=== PATIENT | male | born 1980 | race Caucasian/White ===

== ENCOUNTER 2022-05-09 16:04 | Emergency (ER) | payer MEDICARE, MEDICAID ==
[~2022-05-09] VITALS: Ht 180.3 cm; Wt 131.8 kg
[2022-05-09 16:24] VITALS: BP 149/86
== END 2022-05-09 17:35 | disposition home or self-care (01) ==
LOC: ER 16:06
DX: U07.1 COVID-19 (principal); F17.200 Nicotine dependence, unspecified, uncomplicated
CPT/HCPCS: 99281; 99282

== ENCOUNTER 2022-12-20 08:44 | Emergency (ER) | payer MEDICARE, MEDICAID ==
[~2022-12-20] VITALS: Ht 180.3 cm; Wt 140.0 kg
[2022-12-20 08:47] VITALS: BP 143/91
[2022-12-20] MEDS ORDERED: ketorolac trometh inj. 60 MG/2 ML VIAL IM ONE (09:50)
[2022-12-20] MEDS ORDERED: IBUP-1986 PO (10:10)
== END 2022-12-20 10:20 | disposition home or self-care (01) ==
LOC: ER 08:45
DX: S93.402A Sprain of unspecified ligament of left ankle, initial encounter (principal); X50.0XXA Overexertion from strenuous movement or load, initial encounter; Y93.89 Activity, other specified; Y92.89 Other specified places as the place of occurrence of the external cause; Y99.8 Other external cause status
CPT/HCPCS: 29515; 73610; 96372; 99283; J1885; L1930

== ENCOUNTER 2024-05-22 08:52 | Emergency (ER) | payer MEDICARE, MEDICAID ==
[~2024-05-22] VITALS: Ht 180.3 cm; Wt 133.5 kg
[~2024-05-22 08:52] MED LIST: IBUP-1986 PO
[2024-05-22 08:56] VITALS: BP 138/89; PULSE 77; RESP 16; O2SAT 95
[2024-05-22] MEDS ORDERED: tetanus & diphtheria toxoid (Td) vaccine 0.5ml IMVAC ONE (09:10)
[2024-05-22] MEDS: TETanus/Pertussis (Acell)/Diphther VAC/PF (Tdap-Adult) 0.5ml syringe IMVAC ONE (09:25)
[2024-05-22 09:27] VITALS: TEMP 97.6
== END 2024-05-22 09:29 | disposition home or self-care (01) ==
LOC: ER 08:53
DX: S61.231A Puncture wound without foreign body of left index finger without damage to nail, initial encounter (principal); Z79.1 Long term (current) use of non-steroidal anti-inflammatories (NSAID); X58.XXXA Exposure to other specified factors, initial encounter; Y93.89 Activity, other specified; Y92.89 Other specified places as the place of occurrence of the external cause; Y99.8 Other external cause status
CPT/HCPCS: 90715; 99283; G0008; 90471